=== PATIENT | male | born 1965 | race Caucasian/White ===

== ENCOUNTER 2019-10-16 21:41 | Emergency (ER) | payer BC ==
[~2019-10-16] VITALS: Ht 193 cm; Wt 102.1 kg
[2019-10-16 21:44] VITALS: BP 166/102; Ht 193 cm; Wt 102.1 kg
== END 2019-10-16 23:42 | disposition other institution (70) ==
LOC: ED 21:41
DX: S02.2XXA Fracture of nasal bones, initial encounter for closed fracture (principal); S22.31XA Fracture of one rib, right side, initial encounter for closed fracture; S01.81XA Laceration without foreign body of other part of head, initial encounter; E11.65 Type 2 diabetes mellitus with hyperglycemia; Y04.8XXA Assault by other bodily force, initial encounter; Y93.89 Activity, other specified; Y92.89 Other specified places as the place of occurrence of the external cause; Y99.8 Other external cause status
CPT/HCPCS: 82962; J1815; J1885; J2001

== ENCOUNTER 2019-10-16 21:41 | Emergency (ER) | payer OTHER | END 2019-10-16 23:42 | disposition other institution (70) | LOC: ED 21:41 | DX: Z02.89 Encounter for other administrative examinations (principal) ==

== ENCOUNTER 2019-10-24 11:41 | Emergency (ER) | payer BC ==
[~2019-10-24] VITALS: Ht 193 cm; Wt 98.9 kg
[2019-10-24 11:46] VITALS: Ht 193 cm; Wt 98.9 kg
[2019-10-24 12:40] LABS: BASOPHIL % 0.8 % (0-2); PLATELET COUNT 332 x10^3mcL (130-400); RED CELL DISTRIBUTION WIDTH 12.5 % (11.5-14.5)
[2019-10-24 13:00] LABS: CALCIUM 8.4 mg/dL (8.5-10.1); CARBON DIOXIDE 29.2 mmol/L (21-32); CHLORIDE SERUM 103 mmol/L (98-107); CREATININE SERUM 0.9 mg/dL (0.7-1.3); GFR1 > 60 mL/min; GLUCOSE SERUM 219 mg/dL (74-106); POTASSIUM SERUM 3.9 mmol/L (3.5-5.1); SODIUM SERUM 140 mmol/L (136-145)
[2019-10-24 13:04] LABS: ALBUMIN 3.6 g/dL (3.4-5.0); ALKALINE PHOSPHATASE 93 U/L (46-116); ALT/SGPT 47 U/L (16-63); AST/SGOT 18 U/L (15-37); BILIRUBIN TOTAL 0.7 mg/dL (0.20-1.00); TOTAL PROTEIN, SERUM 6.9 g/dL (6.4-8.2)
[2019-10-24 14:30] LABS: microscopic required? NO
[2019-10-24 14:35] VITALS: BP 124/68
[2019-10-24 14:37] LABS: UA SPECIFIC GRAVITY <=1.005 (1.005-1.035); urine erythrocyte NEGATIVE (NEGATIVE)
== END 2019-10-24 14:44 | disposition home or self-care (01) ==
LOC: ED 11:41
PROVIDERS: Emergency Medicine
DX: S01.81XD Laceration without foreign body of other part of head, subsequent encounter (principal); R55 Syncope and collapse; X58.XXXD Exposure to other specified factors, subsequent encounter
CPT/HCPCS: 82962; Q0092